=== PATIENT | male | born 1965 | race American Indian/Alaskan Native ===

== ENCOUNTER 2021-08-23 21:49 | Emergency (ER) | payer OTHER ==
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
[2021-08-24] MEDS ORDERED: IBUPROFEN 600 MG TAB PO ONE (02:17)
--- NOTE | 2021-08-24 02:19 | XRay Report ---
RIGHT FOOT 3 VIEW(S) INDICATION / CLINICAL INFORMATION: right foot pain COMPARISON: None available. FINDINGS: BONES / JOINT(S): No acute fracture or subluxation. No significant arthritis. SOFT TISSUES: No significant abnormality. ADDITIONAL FINDINGS: None. IMPRESSION: 1. No acute pathology. No significant abnormality. Signer Name: Liam Valle II, MD Signed: 08/24/2021 2:15 AM Workstation Name: [id number]
[2021-08-24 03:42] VITALS: BP 151/85
== END 2021-08-24 03:39 | disposition home or self-care (01) ==
LOC: ED 21:49
DX: S90.31XA Contusion of right foot, initial encounter (principal); I10 Essential (primary) hypertension; E11.9 Type 2 diabetes mellitus without complications; Z79.899 Other long term (current) drug therapy; V87.7XXA Person injured in collision between other specified motor vehicles (traffic), initial encounter; Y93.89 Activity, other specified; Y92.488 Other paved roadways as the place of occurrence of the external cause; Y99.8 Other external cause status
CPT/HCPCS: 99283